=== PATIENT | female | born 1985 | race Caucasian/White ===

== ENCOUNTER 2025-03-31 17:10 | Emergency (ER) | payer OTHER, SELFPAY ==
[2025-03-31 17:12] VITALS: BP 147/104; PULSE 80; RESP 16; TEMP 36.5; O2SAT 99; BMI 34.6
--- NOTE | 2025-03-31 19:12 | ED.GENADULT ---
HPI - General Adult General Chief complaint: Abdominal Pain Stated complaint: Upper abdominal pain Time Seen by Provider: 03/31/25 19:12 History of Present Illness HPI narrative: for the past week pain under sternum after she eats and lasts about 4 hours. today got really bad. states this is what it felt like with gallstone pancreatitis in 2010. gallbladder removed. 40-year-old woman presenting to emergency department with concern of the boring sharp pressure in pain occurring about 30 minutes after eating intermittently over this last week. Nonradiating. In the area of the epigastrium or deep to that. History of gallstone pancreatitis in 2010 requiring hospitalization and cholecystectomy. Has not really had any episodes since although she does recall in 2011 did have what ultimately she thought might be just bad heartburn. She does only struggle with heartburn any case she does feel more symptoms in the upper sternum with that. Cindy has not been touching his discomfort recently. Today did have some salami in some other meats and cheese and then it pain flared. She presented after this to urgent care a felt that further evaluation would be needed in the emergency department setting due to latency to getting lab results. Now pain is on the downward slope she feels. Related Data Home Medications ?Medication ?Instructions ?Recorded ?Confirmed bupropion HCl 150 mg 24 hr tablet, 150 mg PO DAILY 03/31/25 03/31/25 extended release etonogestrel 68 mg subdermal 1 implant subdermal ONCE 03/31/25 03/31/25 implant (Nexplanon) Previous Rx's ?Medication ?Instructions ?Recorded omeprazole 40 mg capsule,delayed 40 mg PO DAILY #15 caps 03/31/25 release Allergies Allergy/AdvReac Type Severity Reaction Status Date / Time No Known Drug Allergies Allergy Verified 03/31/25 21:56 Review of Systems Status of ROS: Reports: 6 or more systems reviewed and unremarkable except as noted in History and below [facility] Social History Smoking Status: Former smoker What tobacco products do you use: cigarettes Smoking quit date/years: <= 15 years ago How often do you have a drink containing alcohol: monthly or less AUDIT-C Alcohol total score: 1 Non-prescribed substance use: denies use Exam Narrative: Exam Narrative: Pleasant. NAD. Breathing easily. Transitioning without significant difficulty. Good energy. Lungs appear clear. Heart in regular rate and rhythm. Abdomen is soft with mild discomfort in the epigastrium. Well-perfused peripherally. No extremity edema. Const: Vital Signs, click to edit/add: Vital Signs - 24 hr 03/31/25 17:12 Temperature 97.7 F Pulse Rate [Pulse Oximeter] 80 Respiratory Rate 16 Blood Pressure [Ri ght Upper Arm] 147/104 H Pulse Oximetry 99 Oxygen Delivery Me thod Room Air Documenting provider has reviewed patient's vital signs: yes Course Vital Signs Vital signs: Initial Vital Signs Temperature 97.7 F 03/31/25 17:12 Temperature Source Temporal Artery Scan 03/31/25 17:12 Pulse Rate 80 03/31/25 17:12 Respiratory Rate 16 03/31/25 17:12 Blood Pressure 147/104 H 03/31/25 17:12 Blood Pressure Mean 118 H 03/31/25 17:12 Blood Pressure Position Sitting 03/31/25 17:12 Pulse Oximetry 99 03/31/25 17:12 Oxygen Delivery Method Room Air 03/31/25 17:12 Vital Signs Temperature 97.7 F 03/31/25 17:12 Pulse Rate 80 03/31/25 17:12 Respiratory Rate 16 03/31/25 17:12 Blood Pressure 147/104 H 03/31/25 17:12 Pulse Oximetry 99 03/31/25 17:12 Oxygen Delivery Method Room Air 03/31/25 17:12 Temperature 97.9 F 03/31/25 22:40 Pulse Rate 79 03/31/25 22:40 Respiratory Rate 18 03/31/25 22:40 Blood Pressure 134/97 H 03/31/25 22:40 Pulse Oximetry 98 03/31/25 22:40 Oxygen Delivery Method Room Air 03/31/25 22:40 Medications Administered Medications: Discontinued Medications Generic Name Dose Route Start Last Admin Trade Name Freq PRN Reason Stop Dose Admin Omeprazole 40 mg 03/31/25 22:43 03/31/25 22:57 Omeprazole [address] PO 03/31/25 22:44 40 mg ONCE ONE Administration Medical Decision Making MDM Narrative Medical decision making narrative: This pain may well be related to pancreatitis. Could be duodenal ulcer. Doubtful vascular disruption or cardiac etiology; would be low risk for this. Is clearly associated with food ingestion. Might be GERD related. Spasm? Check standard labs. Pending these results might benefit from imaging there are with reliable recurrence might be beneficial to get imaging regardless. Might be helpful to identify pancreatic pseudocyst or thickening of for example duodenum that might suggest ulcer or perhaps or would be some other more indolent process. Does not have need of any pain management at this time. Labs are reassuring with normal white count and trace elevation of ALT IV contrasted CT imaging of the abdomen by my independent review I can appreciate postoperative changes. I do not appreciate much else significance. Radiology over-read below Indication: Epigastric pain Technique: CT through the abdomen following 118 mL Isovue 370 IV contrast Comparison: None Findings: Lower chest: No acute abnormality appreciated. Hepatobiliary: No significant parenchymal abnormality is appreciated. Cholecystectomy. Spleen: Tiny nonspecific hypodensity along the posteromedial spleen, likely incidental and benign. Pancreas: No acute abnormality appreciated. Adrenal glands: No acute abnormality appreciated. Kidneys: No acute abnormality appreciated. Subcentimeter hypodensity in the left kidney, too small for definitive characterization by CT. Bowel: No obstruction. No focal perienteric or pericolonic stranding is appreciated. The appendix is visualized and appears unremarkable. Vascular: No acute abnormality appreciated. Lymph nodes: No gross lymphadenopathy. Peritoneum: No free air. No free fluid. Soft tissues: No acute abnormality appreciated. Bones: No acute fracture. No lytic or blastic lesion. Mild lumbosacral spondylosis and L5 pars defects. Impression: No acute abnormality appreciated. Please note that all CT scans at this facility use dose modulation, iterative reconstruction, and/or weight-based dosing when appropriate to reduce radiation dose to as low as reasonably achievable. Dictated by Tahir Wilson MD @ 03/31/2025 10:27:02 PM Did not require other intervention during time in emergency department With association with food perhaps this is more inflammatory, duodenal or gastric ulcer. Might benefit from PPI. There was a history of this. Lipase was normal See patient discharge plan for further discussion Thanks for your patience tonight. Relieved that labs and imaging show nothing. As I said there is 1 more test out there I will call you if that is positive. I would consider restarting omeprazole to take for 2 weeks and then reassess. Sending in that prescription as discussed. In the meantime also would eat a brick kiln burner diet; avoiding fats, cheese, larger quantities of meat, alcohol. Would also message your primary care provider for follow-up. Would consider EGD as a part of this workup. Consider liquid antacid/anti-gas for flares of discomfort. Return for marked increase in persistent pain, associated chest pain, shortness of breath, lightheadedness. Medical Records Medical records reviewed: Yes I reviewed the patient's medical records Lab Data Lab results reviewed: Yes I reviewed the patient's lab results Labs: Lab Results 03/31/25 03/31/25 Range/Units 19:11 22:30 WBC 9.33 (4.50-11.00) K/uL RBC 4.76 (4.00-5.20) m/uL Hgb 14.4 (12.0-16.0) gm/dL Hct 43.1 (33.0-51.0) % MCV 91 (80-100) fL MCH 30 (26-34) pg MCHC 33 (32-36) gm/dL RDW Coeff of Vamshi 11.5 (11.5-15.5) % Plt Count 240 (140-440) K/uL Neut % (Auto) 59.4 (42.0-72.0) % Lymph % (Auto) 26.3 (20-44) % Kern % (Auto) 6.0 (0.0-11.0) % Eos % (Auto) 8.1 H (0.0-7.0) % Baso % (Auto) 0.2 (0.0-3.0) % Neut # (Auto) 5.54 (1.7-7.0) K/uL Lymph # (Auto) 2.45 (0.90-2.90) K/uL Kern # (Auto) 0.60 (0.00-0.90) K/UL Eos # (Auto) 0.80 H (0.00-0.50) K/uL Baso # (Auto) 0.02 (0.00-0.30) K/uL Abs Immat Gran (auto) 0.00 (0.00-0.30) K/uL Imm/Tot Granulo (auto) 0.0 % Sodium 137 (135-149) mmol/L Potassium 3.9 (3.6-5.1) mmol/L Chloride 100 (96-114) mmol/L Carbon Dioxide 27 (20-32) mmol/L Anion Gap 10 (7-15) mEq/L BUN 9 (5-24) mg/dL Creatinine 0.8 (0.5-1.5) mg/dL Estimated Creat Clear 103.11 Estimated GFR 97 ml/min Glucose 98 (60-115) mg/dL Calcium 9.2 (8.4-10.6) mg/dL Total Bilirubin 0.3 (0.1-1.5) mg/dL Direct Bilirubin 0.1 (0.0-0.5) mg/dL AST 33 (12-35) U/L ALT 37 H (4-35) U/L Alkaline Phosphatase 54 (40-150) U/L Troponin I < 0.01 (0.01-0.04) ng/mL C-Reactive Protein < 0.5 L (0.5-1.0) mg/dL Total Protein 7.0 (6.0-8.3) g/dL Albumin 4.3 (3.3-5.0) g/dL Lipase 64 (23-300) U/L Lab Acknowledgement Test Added Discharge Plan Discharge Clinical Impression: Colicky epigastric pain Patient Disposition: Home, Self-Care Condition: Improved Additional Instructions: Thanks for your patience tonight. Relieved that labs and imaging show nothing. As I said there is 1 more test out there I will call you if that is positive. I would consider restarting omeprazole to take for 2 weeks and then reassess. Sending in that prescription as discussed. In the meantime also would eat a brick kiln burner diet; avoiding fats, cheese, larger quantities of meat, alcohol. Would also message your primary care provider for follow-up. Would consider EGD as a part of this workup. Consider liquid antacid/anti-gas for flares of discomfort. Return for marked increase in persistent pain, associated chest pain, shortness of breath, lightheadedness. Prescriptions: New omeprazole 40 mg capsule,delayed release(DR/EC) 40 mg PO DAILY Qty: 15 0RF No Action bupropion HCl 150 mg tablet extended release 24 hr 150 mg PO DAILY Nexplanon 68 mg implant 1 implant subdermal ONCE Rx Instructions: as a single dose Follow Up/Referrals: Provider,Not a Local [Primary Care Provider, Family Practice] Stand Alone [facility]: [facility] Info Instructions
--- OUTSIDE RECORDS SUMMARY | 2025-03-31 19:31 | XMS_ITS | Encounter Summary ---
Author Organization [place] Address [address] [place] [address] Care Team Providers Care Manager Renewable Energy Name Role Phone Yoon Schulz APRN WET CLEANER MACHINE Primary Care Provider Yoon Schulz APRN WET CLEANER MACHINE Unavailable Barrie Bojorquez MD Unavailable [phone] No Ref-Primary, Physician Primary Care Provider Yoon Schulz APRN WET CLEANER MACHINE Unavailable Evgeny Ham MD Unavailable Polina Black NP Unavailable [phone] Ilya Tolliver MD Unavailable [phone] Yoon Schulz APRN WET CLEANER MACHINE Unavailable Polina Black NP Unavailable [phone] [facility] Unavailable [phone] Encounter Details Date Type Department Care Team (Late st Contact Info) Description 02/12/2019 [facility] [place] [address] [facility] [address] [place] [address] [place] [address] [place] [address] [place] [address] Social History Tobacco Use Types Packs/Day Years Used Date Smoking Tobacco: Never Smokeless Tobacco: Never Alcohol Use Standard Drinks/Week Comments Yes 0 (1 standard drink = 0.6 oz pur e alcohol) PHQ-2 Answer Date Recorded PHQ-2 Score 0 06/19/2018 Comments No Sex and Gender Information Value Date Recorded Sex Assigned at Female 05/02/2021 3:16 PM LEGEND MAKER Legal Sex Female 5:00 AM LEGEND MAKER Gender Identity Female 05/02/2021 3:16 PM LEGEND MAKER Sexual Orientation Straight 05/02/2021 3: 16 PM LEGEND MAKER documented as of this encounter Plan of Treatment Not on file documented as of this encounter Visit Diagnoses Not on filedocumented in this encounter Additional Health Concerns Infection Onset Date Last Indicated Resolved Time Rule Out COVID-19 05/03/2021 05/03/2021 05/03/2021 4:45 PM LEGEND MAKER COVID-19 05/03/2021 05/03/2021 05/24/2021 11:4 1 PM LEGEND MAKER documented as of this encounter Care Teams Manager Renewable Energy Relationship Specialty Start Date End Date Yoon Schulz APRN WET CLEANER MACHINE PCP - General Nurse Practitioner 03/13/17 01/15/21 No Ref-Primary, Physician PCP - General 01/16/21 Yoon Schulz APRN WET CLEANER MACHINE [address] [place] [address] Assigned PCP 03/18/17 09/04/20 [place] [address] [facility] [address] [place] [address] Assigned Musculoskeletal Provider 04/02/20 08/14/20 Yoon Schulz APRN WET CLEANER MACHINE [address] [place] [address] Assigned PCP 05/29/21 03/17/22 Evgeny Ham MD [address] [place] [address] Assigned Sleep Provider 07/31/21 Polina Black NP [address] [place] [address] Assigned PCP 03/18/22 08/04/22 [place] [address] [place] [address] Assigned OBGYN Provider 05/20/22 Yoon Schulz APRN WET CLEANER MACHINE Assigned PCP 08/05/22 11/17/22 Polina Black NP [address] [place] [address] Assigned PCP 11/18/22 03/02/24 [facility] [address] [place] [address] Assigned PCP 03/03/24 07/02/24 documented as of this encounter
--- OUTSIDE RECORDS SUMMARY | 2025-03-31 19:31 | XMS_ITS | Encounter Summary ---
Author Organization [place] Address [address] [place] [address] Care Team Providers Care Clean Up Worker Name Role Phone Jazz, Yoon Gregorio MAJOR DONOR COORDINATOR PHARMACY CARE COORDINATOR Primary Care Provider Jazz, Yoon Gregorio MAJOR DONOR COORDINATOR PHARMACY CARE COORDINATOR Unavailable Jazz, Yoon Gregorio MAJOR DONOR COORDINATOR PHARMACY CARE COORDINATOR Unavailable Barrie Bojorquez MD Unavailable [phone] No Ref-Primary, Physician Primary Care Provider Jazz, Yoon Gregorio MAJOR DONOR COORDINATOR PHARMACY CARE COORDINATOR Unavailable Evgeny Ham MD Unavailable Polina Black NP Unavailable [phone] Ilya Tolliver MD Unavailable [phone] JazzYoon rubalcava APRN PHARMACY CARE COORDINATOR Unavailable Polina Black NP Unavailable [phone] [facility] Unavailable [phone] Encounter Details Date Type Department Care Team (Late st Contact Info) Description 08/06/2017 [facility] [place] [address] [place] [place] [address] [place] [place] [address] Resendiz, Oscar Social History Tobacco Use Types Packs/Day Years Used Date Smoking Tobacco: Never Alcohol Use Standard Drinks/Week Comments Yes 0 (1 standard drink = 0.6 oz pur e alcohol) Comments No Sex and Gender Information Value Date Recorded Sex Assigned at Female 05/02/2021 3:16 PM TRAFFIC CONTROL OPERATOR Legal Sex Female 5:00 AM TRAFFIC CONTROL OPERATOR Gender Identity Female 05/02/2021 3:16 PM TRAFFIC CONTROL OPERATOR Sexual Orientation Straight 05/02/2021 3: 16 PM TRAFFIC CONTROL OPERATOR documented as of this encounter Plan of Treatment Not on file documented as of this encounter Visit Diagnoses Not on filedocumented in this encounter Additional Health Concerns Infection Onset Date Last Indicated Resolved Time Rule Out COVID-19 05/03/2021 05/03/2021 05/03/2021 4:45 PM TRAFFIC CONTROL OPERATOR COVID-19 05/03/2021 05/03/2021 05/24/2021 11:4 1 PM TRAFFIC CONTROL OPERATOR documented as of this encounter Care Teams Clean Up Worker Relationship Specialty Start Date End Date Yoon Schulz APRN CNP PCP - General Nurse Practitioner 03/13/17 01/15/21 Yoon Schulz APRN PHARMACY CARE COORDINATOR [address] [place] [address] PCP - Assigned PCP 03/18/17 08/13/18 No Ref-Primary, Physician PCP - General 01/16/21 Yoon Schulz APRN PHARMACY CARE COORDINATOR [address] [place] [address] Assigned PCP 03/18/17 09/04/20 [place] [address] [place] [place] [address] Assigned Musculoskeletal Provider 04/02/20 08/14/20 Yoon Schulz APRN PHARMACY CARE COORDINATOR [address] [place] [address] Assigned PCP 05/29/21 03/17/22 Evgeny Ham MD [address] [place] [address] Assigned Sleep Provider 07/31/21 Polina Black NP [address] [place] [address] Assigned PCP 03/18/22 08/04/22 [place] [address] [place] [address] Assigned OBGYN Provider 05/20/22 Yoon Schulz APRN PHARMACY CARE COORDINATOR Assigned PCP 08/05/22 11/17/22 Polina Black NP [address] [place] [address] Assigned PCP 11/18/22 03/02/24 [facility] [address] [place] [address] Assigned PCP 03/03/24 07/02/24 documented as of this encounter
--- OUTSIDE RECORDS SUMMARY | 2025-03-31 19:31 | XMS_ITS | Encounter Summary ---
Author Organization [facility] Address [address] [place] [address] Care Team Providers Care Pl Sql Programmer Name Role Phone No Ref-Primary, Physician Primary Care Provider Yoon Schulz APRN SENIOR ACCOUNTING CLERK Unavailable Evgeny Ham MD Unavailable Polina Black NP Unavailable [phone] Ilya Tolliver MD Unavailable [phone] Yoon Schulz APRN SENIOR ACCOUNTING CLERK Unavailable Polina Black NP Unavailable [phone] [facility] Unavailable [phone] Encounter Details Date Type Department Care Team (Late st Contact Info) Description 07/14/2021 [facility] Advice [facility] [place] [address] [address] Moon Gilliland, MOTOR VEHICLE FIELD REPRESENTATIVE Social History Tobacco Use Types Packs/Day Years Used Date Smoking Tobacco: Former Smokeless Tobacco: Never Comments:quit in 2010 Alcohol Use Standard Drinks/Week Comments Yes 0 (1 standard drink = 0.6 oz pur e alcohol) occasional weekends PHQ-2 Answer Date Recorded PHQ-2 Score 0 06/19/2018 Comments No Sex and Gender Information Value Date Recorded Sex Assigned at Female 05/02/2021 3:16 PM SUPERVISOR PASTRY Legal Sex Female 5:00 AM SUPERVISOR PASTRY Gender Identity Female 05/02/2021 3:16 PM SUPERVISOR PASTRY Sexual Orientation Straight 05/02/2021 3: 16 PM SUPERVISOR PASTRY documented as of this encounter Plan of Treatment Not on file documented as of this encounter Visit Diagnoses Not on filedocumented in this encounter Care Teams Pl Sql Programmer Relationship Specialty Start Date End Date No Ref-Primary, Physician PCP - General 01/16/21 Yoon Schulz APRN SENIOR ACCOUNTING CLERK [address] [place] [address] Assigned PCP 05/29/21 03/17/22 Evgeny Ham MD [address] [place] [address] Assigned Sleep Provider 07/31/21 Polina Black NP [address] [place] [address] Assigned PCP 03/18/22 08/04/22 [place] [address] [place] [address] Assigned OBGYN Provider 05/20/22 Yoon Schulz APRN SENIOR ACCOUNTING CLERK [address] [place] [address] Assigned PCP 08/05/22 11/17/22 Polina Black NP [address] [place] [address] Assigned PCP 11/18/22 03/02/24 [facility] [address] [place] [address] Assigned PCP 03/03/24 07/02/24 documented as of this encounter
--- OUTSIDE RECORDS SUMMARY | 2025-03-31 19:31 | XMS_ITS | Encounter Summary ---
Author Organization [place] Address [address] [place] [address] Care Team Providers Care Shade Matcher Name Role Phone Jazz, Yoon Gregorio CLINICAL LAB SCIENTIST ECONOMIC DEVELOPMENT SPECIALIST Primary Care Provider Jazz, Yoon Gregorio CLINICAL LAB SCIENTIST ECONOMIC DEVELOPMENT SPECIALIST Unavailable Jazz, Yoon Gregorio CLINICAL LAB SCIENTIST ECONOMIC DEVELOPMENT SPECIALIST Unavailable Barrie Bojorquez MD Unavailable [phone] No Ref-Primary, Physician Primary Care Provider Jazz, Yoon Gregorio CLINICAL LAB SCIENTIST ECONOMIC DEVELOPMENT SPECIALIST Unavailable Evgeny Ham MD Unavailable Polina Black NP Unavailable [phone] Ilya Tolliver MD Unavailable [phone] JazzYoon rubalcava APRN ECONOMIC DEVELOPMENT SPECIALIST Unavailable Polina Black NP Unavailable [phone] [facility] Unavailable [phone] Encounter Details Date Type Department Care Team (Late st Contact Info) Description 01/14/2018 [facility] [address] [address] Lore Ruiz RN Social History Tobacco Use Types Packs/Day Years Used Date Smoking Tobacco: Never Smokeless Tobacco: Never Alcohol Use Standard Drinks/Week Comments Yes 0 (1 standard drink = 0.6 oz pur e alcohol) Comments No Sex and Gender Information Value Date Recorded Sex Assigned at Female 05/02/2021 3:16 PM SEARCH ANALYST Legal Sex Female 5:00 AM SEARCH ANALYST Gender Identity Female 05/02/2021 3:16 PM SEARCH ANALYST Sexual Orientation Straight 05/02/2021 3: 16 PM SEARCH ANALYST documented as of this encounter Plan of Treatment Not on file documented as of this encounter Visit Diagnoses Not on filedocumented in this encounter Additional Health Concerns Infection Onset Date Last Indicated Resolved Time Rule Out COVID-19 05/03/2021 05/03/2021 05/03/2021 4:45 PM SEARCH ANALYST COVID-19 05/03/2021 05/03/2021 05/24/2021 11:4 1 PM SEARCH ANALYST documented as of this encounter Care Teams Shade Matcher Relationship Specialty Start Date End Date Yoon Schulz APRN ECONOMIC DEVELOPMENT SPECIALIST PCP - General Nurse Practitioner 03/13/17 01/15/21 Yoon Schulz APRN ECONOMIC DEVELOPMENT SPECIALIST [address] [place] [address] PCP - Assigned PCP 03/18/17 08/13/18 No Ref-Primary, Physician PCP - General 01/16/21 Yoon Schulz APRN ECONOMIC DEVELOPMENT SPECIALIST [address] [place] [address] Assigned PCP 03/18/17 09/04/20 [place] [address] [place] [place] [address] Assigned Musculoskeletal Provider 04/02/20 08/14/20 Yoon Schulz APRN ECONOMIC DEVELOPMENT SPECIALIST [address] [place] [address] Assigned PCP 05/29/21 03/17/22 Evgeny Ham MD [address] [facility] [address] [place] [address] Assigned Sleep Provider 07/31/21 Polina Black, TOOL LATHE OPERATOR [address] [place] [address] Assigned PCP 03/18/22 08/04/22 [place] [address] [place] [address] Assigned OBGYN Provider 05/20/22 Yoon Schulz, CLINICAL LAB SCIENTIST ECONOMIC DEVELOPMENT SPECIALIST Assigned PCP 08/05/22 11/17/22 Polina Black, LILIANA [address] [place] [address] Assigned PCP 11/18/22 03/02/24 [facility] [address] [place] [address] Assigned PCP 03/03/24 07/02/24 documented as of this encounter
--- OUTSIDE RECORDS SUMMARY | 2025-03-31 19:31 | XMS_ITS | Encounter Summary ---
Author Organization [facility] Address [address] [place] [address] Care Team Providers Care Ring Sewer Name Role Phone Jazz, Yoon Gregorio WET END HELPER HEAD OF SALES AND MARKETING Primary Care Provider Jazz, Yoon Gregorio WET END HELPER HEAD OF SALES AND MARKETING Unavailable Jazz, Yoon Gregorio WET END HELPER HEAD OF SALES AND MARKETING Unavailable Barrie Bojorquez MD Unavailable [phone] No Ref-Primary, Physician Primary Care Provider Jazz, Yoon Gregorio WET END HELPER HEAD OF SALES AND MARKETING Unavailable Evgeny Ham MD Unavailable Polina Black NP Unavailable [phone] Ilya Tolliver MD Unavailable [phone] JazzYoon rubalcava APRN HEAD OF SALES AND MARKETING Unavailable Polina Black NP Unavailable [phone] [facility] Unavailable [phone] Reason for Visit * Reason Onset Date Comments Patient/info Update 09/10/2017 Encounter Details Date Type Department Care Team (Late st Contact Info) Description 09/10/2017 [facility] [address] [place] [address] Yoon Schulz APRN HEAD OF SALES AND MARKETING [address] [place] [address] Patient/info Update Social History Tobacco Use Types Packs/Day Years Used Date Smoking Tobacco: Never Alcohol Use Standard Drinks/Week Comments Yes 0 (1 standard drink = 0.6 oz pur e alcohol) Comments No Sex and Gender Information Value Date Recorded Sex Assigned at Female 05/02/2021 3:16 PM HEADLIGHT ASSEMBLER Legal Sex Female 5:00 AM HEADLIGHT ASSEMBLER Gender Identity Female 05/02/2021 3:16 PM HEADLIGHT ASSEMBLER Sexual Orientation Straight 05/02/2021 3: 16 PM HEADLIGHT ASSEMBLER documented as of this encounter Miscellaneous Notes * Telephone Encounter - Yoon Schulz APRN CNP - 09/10/2017 3:32 PM CDT noted * Telephone Encounter - Lisa Schmid RN - 09/10/2017 3:29 PM CDT Please see mychart. She does have appt with Rheumatology 10-25-17. OV notes 09-04-17: Pain in joint, multiple sites Unknown etiology- workup thus far has been unremarkable - RHEUMATOLOGY REFERRAL - Anaplasma phagocytoph antibody IgG IgM - Babesia antibody IgG IgM - Lyme Disease Demi with reflex to WB Serum - TSH with free T4 reflex - CRP inflammation - Erythrocyte sedimentation rate auto ?? 2. History of wrist fracture ?? Routing to provider. Lisa Allen RN documented in this encounter Plan of Treatment Not on file documented as of this encounter Visit Diagnoses Not on filedocumented in this encounter Additional Health Concerns Infection Onset Date Last Indicated Resolved Time Rule Out COVID-19 05/03/2021 05/03/2021 05/03/2021 4:45 PM HEADLIGHT ASSEMBLER COVID-19 05/03/2021 05/03/2021 05/24/2021 11:4 1 PM HEADLIGHT ASSEMBLER documented as of this encounter Care Teams Ring Sewer Relationship Specialty Start Date End Date Yoon Schulz APRN HEAD OF SALES AND MARKETING PCP - General Nurse Practitioner 03/13/17 01/15/21 Yoon Schulz APRN HEAD OF SALES AND MARKETING [address] [facility] [place] [address] PCP - Assigned PCP 03/18/17 08/13/18 No Ref-Primary, Physician PCP - General 01/16/21 Yoon Schulz APRN HEAD OF SALES AND MARKETING [address] [facility] [place] [address] Assigned PCP 03/18/17 09/04/20 [place] [address] [place] [address] Assigned Musculoskeletal Provider 04/02/20 08/14/20 Yoon Schulz APRN HEAD OF SALES AND MARKETING [address] [facility] [place] [address] Assigned PCP 05/29/21 03/17/22 Evgeny aHm MD [address] [place] [address] Assigned Sleep Provider 07/31/21 Polina Black NP [address] [place] [address] Assigned PCP 03/18/22 08/04/22 [place] [address] [place] [address] Assigned OBGYN Provider 05/20/22 Yoon Schulz APRN HEAD OF SALES AND MARKETING Assigned PCP 08/05/22 11/17/22 Polina Black NP [address] [place] [address] Assigned PCP 11/18/22 03/02/24 [facility] [address] [place] [address] Assigned PCP 03/03/24 07/02/24 documented as of this encounter
--- OUTSIDE RECORDS SUMMARY | 2025-03-31 19:31 | XMS_ITS | Clinical Summary ---
Author Organization [facility] Address [address] [place] [address] Care Team Providers Care Chief Marketing Officer Name Role Phone Pcp, No Primary Care Provider Unavailabl e Allergies No known active allergies Medications desogestrel-et hinyl estradiol, 0.15-30 mg-mcg, (RECMAKSIMEN, 28,) tablet Take 1 tablet by mouth once daily. 3 Package 3 0 Active oxyCODONE-acet aminophen, 5-325 mg, (PERCOCET 5-325) 5-325 mg per tablet Take 1-2 tablets by mouth every 4 hours if needed for Pain (Moderate pain.). Max acetaminophen dose: 4000mg in 24 hrs. 30 tablet 0 1 Active oxyCODONE-acet aminophen, 5-325 mg, (PERCOCET) per tablet Take 1-2 tablets by mouth every 6 hours if needed for Pain. Max acetaminophen dose: 4000mg in 24 hrs. 10 tablet 0 2 Active buPROPion (WELLBUTRIN XL) 150 mg Extended-Relea se tablet 5 Active etonogestrel subdermal implant (NEXPLANON) 68 mg implant Inject subdermal one time. Active Active Problems Problem Noted Date Diagnosed Date Gallstone pancreatitis 12/26/2010 Overview (12/26/2010): 12-26-10 Lap [place] and grams per Dr Adorno Encounters Date Type Department Care Team Description 03/25/2025 1:40 PM CDT Office Visit [facility] [address] [id number] Ana Guzman MD Derm Problem 03/24/2025 Travel from Last 3 Months Family History Medical History Relation Name Comments Other Mother lymes disease Other Sister appendix remove d Relation Name Status Comments Mother Sister Social History Tobacco Use Types Packs/Day Years Used Date Smoking Tobacco: Former Cigarettes 0 07/12/2001 - 07/12/2008 Comments:Quit smoking with 7 yr hx noted 10/14/08 Alcohol Use Standard Drinks/Week Comments Yes 0 (1 standard drink = 0.6 oz pur e alcohol) occas. 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 file Not on file Not on file Obstetrics History Para Term AB IAB SAB Ectopic Multiple Livin g Live Births 0 0 0 0 0 0 0 0 0 0 Last Filed Vital Signs Vital Sign Reading Time Taken Comments Blood Pressure 125/73 09/24/2011 6:11 AM CDT Pulse 76 09/24/2011 6:11 AM CDT Temperature 36.1 C (97 F) 09/24/2011 12:26 AM CDT Respiratory Rate 16 09/24/2011 6:11 AM CDT Oxygen Saturation 98% 09/24/2011 6:11 AM CDT Inhaled Oxygen Concentration - - Weight 83.9 kg (185 lb) 09/24/2011 12:26 AM CDT Height 177.8 cm (5' 10) 12/23/2010 9:35 PM CDT Body Mass Index 26.54 12/23/2010 9:35 PM CDT Plan of Treatment Health Maintenance Due Date Last Done Comments Depression screening for age 12+ 1999 HIV for age 15-65 2002 BMI (ht and wt on same day) for age 18+ 2005 Hepatitis C screening for ag e 18-79 2005 Hepatitis B series for 19+ ( 1 of 3 - 19+ 3-dose series) 2006 Pap test for age 21-65 10/15/2011 10/14/2008 Tetanus booster 06/11/2012 06/11/2002 HPV series for age 9-45 (1 - 3-dose SCDM series) 2014 COVID-19 vaccine series (2023- season) 2025 Influenza Vaccine (#1) 2025 RSV vaccine for adults or (1 - 1-dose 75+ series) 2062 Pneumococcal series for age 6-49 Aged Out No longer eligible based on patient's age to complete this topic Procedures Procedure Name Priority Date/Time Associated Diagnosis Comments MEDICAL INSTRUMENT TECHNICIAN THIN PREP PAP SCREEN IMAGED Routine 10/14/2008 5:38 PM CDT Cervical Smear, as Part of Routine Gynecological Examination from Last 3 Months or Most Recently Relevant to Health Maintenance Results * MEDICAL INSTRUMENT TECHNICIAN THIN PREP PAP SCREEN IMAGED (10/14/2008 5:38 PM CDT) CYTOLOGY CYTOPATHOLOGY REPORT [facility] Status: Final Report [id number] CLINICAL INFORMATION Date of Last LMP : 09/16/08 Last Pap Date : never Last Pap Result : First Pap/Unknown ABN [place]/Bx Past 5 YRS: None Hormone Usage : None Menstrual Status : Regular Periods [place]/Bx done today : No Additional Data : None given HPV Request : HPV if ASCUS SPECIMEN SOURCE : Cervical/vaginal ThinPrep Vial, screening SPECIMEN ADEQUACY : Satisfactory for evaluation Endocervical component present. INTERPRETATION/RES ULT: Negative for intraepithelial lesion or malignancy (NIL) Organisms Shift in maricarmen suggestive of bacterial vaginosis Cytology 1st Screener : jeison Signed by: tll This specimen was screened by the FDA approved ThinPrep Imaging System and manually reviewed. NOTE: The Pap test is a screening technique, not a diagnostic procedure. It is used primarily to screen for squamous cancers and precursor lesions. Published studies have shown that it is subject to both false negative and false positive results. The pap test should not be used as the sole means to diagnose or exclude pre-malignant and malignant lesions. COLLECTED: 10/14/08 ACCESSIONED: 10/14/08 SIGNED: 10/20/08 [facility] P[facility] [place] CODE NIL [facility] Cervical/Vaginal (Cervical/Vagina l) 10/14/2008 5:38 PM CDT 10/14/2008 5:36 PM CDT Peri Garza DO PATHOLOGY/CYTOLOGY Final Resul t [facility] INTERNAL ZIP [address] [address] from Last 3 Months or Most Recently Relevant to Health Maintenance Insurance MEDICA CHOICE Advance Directives * Full Code (Latest Code Status on File) Date Activated Date Inactivated Comments 12/25/2010 9:15 PM 12/27/2010 3:30 PM * Full Code Date Activated Date Inactivated Comments 12/23/2010 9:55 PM 12/25/2010 9:15 PM Care Teams Chief Marketing Officer Relationship Specialty Start Date End Date Pcp, No . PCP - General 12/23/10
--- OUTSIDE RECORDS SUMMARY | 2025-03-31 19:31 | XMS_ITS | Encounter Summary ---
Author Organization [facility] Address [address] [place] [address] Care Team Providers Care Fast Food Sales Assistant Name Role Phone JazzYoon APRN ADVERTISING REPRESENTATIVE Primary Care Provider Jazz, Yoon Gregorio APRN ADVERTISING REPRESENTATIVE Unavailable JazzYoon APRN ADVERTISING REPRESENTATIVE Unavailable Barrie Bojorquez MD Unavailable [phone] No Ref-Primary, Physician Primary Care Provider JazzYoon APRN ADVERTISING REPRESENTATIVE Unavailable Evgeny Ham MD Unavailable Polina Black NP Unavailable [phone] Ilya Tolliver MD Unavailable [phone] JazzYoon rubalcava APRN ADVERTISING REPRESENTATIVE Unavailable Polina Black NP Unavailable [phone] [facility] Unavailable [phone] Encounter Details Date Type Department Care Team (Late st Contact Info) Description 10/09/2017 [facility] [place] [facility] [address] [place] [id number] Yoon Schulz APRN ADVERTISING REPRESENTATIVE [address] [place] [address] Recurrent cold sores Social History Tobacco Use Types Packs/Day Years Used Date Smoking Tobacco: Never Alcohol Use Standard Drinks/Week Comments Yes 0 (1 standard drink = 0.6 oz pur e alcohol) Comments No Sex and Gender Information Value Date Recorded Sex Assigned at Female 05/02/2021 3:16 PM LEGAL INTERNSHIP Legal Sex Female 5:00 AM LEGAL INTERNSHIP Gender Identity Female 05/02/2021 3:16 PM LEGAL INTERNSHIP Sexual Orientation Straight 05/02/2021 3: 16 PM LEGAL INTERNSHIP documented as of this encounter Miscellaneous Notes * Telephone Encounter - Radha Guidry RN - 10/09/2017 6:37 PM CDT Routed to provider. Pt last seen 09/04/17. Last filled Valacyclovir 04/20/15. Please see Zachary Prell message from pt below. Radha Guidry RN documented in this encounter Plan of Treatment Not on file documented as of this encounter Visit Diagnoses Diagnosis Recurrent cold sores Herpes simplex without mention of complication documented in this encounter Additional Health Concerns Infection Onset Date Last Indicated Resolved Time Rule Out COVID-19 05/03/2021 05/03/2021 05/03/2021 4:45 PM LEGAL INTERNSHIP COVID-19 05/03/2021 05/03/2021 05/24/2021 11:4 1 PM LEGAL INTERNSHIP documented as of this encounter Care Teams Fast Food Sales Assistant Relationship Specialty Start Date End Date Yoon Schulz APRN ADVERTISING REPRESENTATIVE PCP - General Nurse Practitioner 03/13/17 01/15/21 Yoon Schulz APRN ADVERTISING REPRESENTATIVE [address] [place] [address] PCP - Assigned PCP 03/18/17 08/13/18 No Ref-Primary, Physician PCP - General 01/16/21 Yoon Schulz APRN ADVERTISING REPRESENTATIVE [address] [place] [address] Assigned PCP 03/18/17 09/04/20 [place] [address] [place] [address] Assigned Musculoskeletal Provider 04/02/20 08/14/20 Yoon Schulz APRN ADVERTISING REPRESENTATIVE [address] [place] [address] Assigned PCP 05/29/21 03/17/22 Evgeny aHm MD [address] [place] [id number] Assigned Sleep Provider 07/31/21 Polina Black, LILIANA [address] [place] [address] Assigned PCP 03/18/22 08/04/22 [place] [address] [place] [address] Assigned OBGYN Provider 05/20/22 Yoon Schulz APRN ADVERTISING REPRESENTATIVE Assigned PCP 08/05/22 11/17/22 Polina Black NP [address] [place] [address] Assigned PCP 11/18/22 03/02/24 [facility] [address] [place] [address] Assigned PCP 03/03/24 07/02/24 documented as of this encounter
--- OUTSIDE RECORDS SUMMARY | 2025-03-31 19:32 | XMS_ITS | Clinical Summary ---
Author Organization [facility] Address [address] [place] [address] Care Team Providers Care Concrete Spreader Name Role Phone No Ref-Primary, Physician Primary Care Provider Allergies No known active allergies Medications etonogestrel (NEXPLANON) 68 MG IMPLIndications:En counter for gynecological examination without abnormal finding 1 each by Subdermal route once Active etonogestrel (NEXPLANON) 68 MG IMPL 1 each (68 mg) by Subdermal route once Active etonogestrel (NEXPLANON) 68 MG IMPLIndications:En counter for removal and reinsertion of Nexplanon 1 each (68 mg) by Subdermal route once Active Active Problems Problem Noted Date Diagnosed Date Nexplanon insertion 06/06/2022 Overview (06/06/2022): Clinic Administered Medication Documentation Administrations This Visit etonogestrel (NEXPLANON) subdermal implant 68 mg Admin Date 06/06/2022 Action Given Dose 68 mg Route Subdermal Site Left Arm Administered By Shayy Lujan CMA Ordering Provider: Ilya Tolliver MD Patient Supplied?: No Intrauterine/Implant Insertion Documentation Device was placed by provider (please see MAR for given by information). Please see MAR and medication order for additional information. Type: Nexplanon Left arm Remove/Replace by: 06/06/25 Expiration Date: 04/03/24 Restless legs syndrome (RLS) 07/20/2021 Sleep-wake schedule disorder, delayed phase type 07/20/2021 Infection due to 2019 novel coronavirus 05/05/20 Acute respiratory failure with hypoxia Cold sore 04/29/2015 CARDIOVASCULAR SCREENING; LDL GOAL LESS THAN 160 04/10/2010 Joint pain Vitamin D deficiency Immunizations Immunization Administration Dates Next Due HPV9 (Gardasil) 11/09/2022,07/24/2022,05/11/2022 Hepatitis B Immunity: Titer 03/01/2005 Meningococcal (Menomune ) 03/01/2005 Rabies Vaccine 09/11/2005, 6,08/21/2005,05/15/2005,02/10 TDAP Vaccine (Adacel) 04/20/2015 Family History Medical History Relation Comments Breast Cancer Maternal Aunt Arthritis Maternal Grandfather Colon Cancer Maternal Grandfather Prostate Cancer Maternal Grandfather Arthritis Maternal Grandmother Breast Cancer Paternal Aunt Seizure Disorder Paternal Aunt Arthritis Paternal Grandfather Cancer Paternal Grandfather unknown wha t type of cancer Hypertension Paternal Grandfather Arthritis Paternal Grandmother Relation Status Comments Father Alive Maternal Aunt Alive Maternal Grandfather Maternal Grandmother Alive Mother Alive Paternal Aunt Paternal Grandfather Paternal Grandmother Sister 1 Alive Sister 2 Alive Social History Tobacco Use Types Packs/Day Years Used Date Smoking Tobacco: Former Smokeless Tobacco: Never Tobacco Cessation:Counseling Given: Not Answered Comments:quit in 2010 Alcohol Use Standard Drinks/Week Comments Yes 0 (1 standard drink = 0.6 oz pur e alcohol) occasional weekends PHQ-2 Answer Date Recorded PHQ-2 Score 0 07/20/2021 Adolescent Education Answer Date Record ed Getting School Help Needed Not on file 03/12 Comments No Sex and Gender Information Value Date Recorded Sex Assigned at Female 05/02/2021 3:16 PM MORTAR MIXER OPERATOR Legal Sex Female 5:00 AM MORTAR MIXER OPERATOR Gender Identity Female 05/02/2021 3:16 PM MORTAR MIXER OPERATOR Sexual Orientation Straight 05/02/2021 3: 16 PM MORTAR MIXER OPERATOR Last Filed Vital Signs Vital Sign Reading Time Taken Comments Blood Pressure 133/87 06/06/2022 2:31 PM MORTAR MIXER OPERATOR Pulse 97 06/06/2022 2:31 PM MORTAR MIXER OPERATOR Temperature 35.6 C (96.1 F) 06/06/2022 2:31 PM MORTAR MIXER OPERATOR Respiratory Rate 20 06/06/2022 2:31 PM MORTAR MIXER OPERATOR Oxygen Saturation 98% 05/17/2021 9:50 AM MORTAR MIXER OPERATOR Inhaled Oxygen Concentration - - Weight 122.4 kg (269 lb 14.4 oz) 06/06/2022 2:31 PM MORTAR MIXER OPERATOR Height 177.8 cm (5' 10) 06/06/2022 2:31 PM MORTAR MIXER OPERATOR Body Mass Index 38.73 06/06/2022 2:31 PM MORTAR MIXER OPERATOR Plan of Treatment Health Maintenance Due Date Last Done Comments ANNUAL REVIEW OF HM ORDERS 1987 YEARLY PREVENTIVE VISIT 1990 HIV SCREENING 2002 HEPATITIS B VACCINE (2 of 3 - 3-dose series) 03/29/2005 03/01/2005 DIABETES SCREENING 05/07/2024 05/07/2021, 1 07/06/2020, 05/05/2021, Additional history exists PHQ-2 (once per calendar year) 2024 07/20/2021, 10/25/2017, 04/20/2015 COVID-19 VACCINE ( - season) 2025 INFLUENZA VACCINE (#1) 2025 DTAP/TDAP/TD VACCINE (2 - Td or Tdap) 04/20/2025 04/20/2015 ADVANCE CARE PLANNING 01/27/2026 01/27/2021 HPV TEST 05/11/2027 05/11/2022 PAP 05/11/2027 05/11/2022 ZOSTER VACCINE (1 of 2) 2037 MENINGITIS VACCINE Aged Out 03/01/2005 No longer eligible based on patient's age to complete this topic HEPATITIS C SCREENING Completed 10/25/2017 HPV VACCINE Completed 11/09/2022, 07/12, 05/11/2022 PNEUMOCOCCAL VACCINE: PEDIATRICS (0 to 5 YEARS) AND AT-RISK PATIENTS (6 to 49 YEARS) Aged Out No longer eligible based on patient's age to complete this topic Procedures Procedure Name Priority Date/Time Associated Diagnosis Comments GYNECOLOGIC CYTOLOGY Routine 05/11/2022 10:03 AM MORTAR MIXER OPERATOR Encounter for gynecological examination without abnormal finding HPV HIGH RISK TYPES DNA CERVICAL Routine 05/11/2022 10:03 AM MORTAR MIXER OPERATOR Encounter for gynecological examination without abnormal finding BASIC METABOLIC PANEL Routine 05/07/2021 4:49 AM MORTAR MIXER OPERATOR HEPATITIS C ANTIBODY Routine 10/25/2017 2:04 PM CDT Multiple joint pain from Last 3 Months or Most Recently Relevant to Health Maintenance Results * Pap screen with HPV - recommended age 30 - 65 years (05/11/2022 10:03 AM MORTAR MIXER OPERATOR) Interpretation Negative for Intraepithelial Lesion or Malignancy (NILM) 05/15/2022 11:19 AM MORTAR MIXER OPERATOR [facility] at 1119 MORTAR MIXER OPERATOR Comment Papanicolaou Test Limitations: Cervical cytology is a screening test with limited sensitivity, and regular screening is critical for cancer prevention. Pap tests are primarily effective for the diagnosis/prevent ion of squamous cell carcinoma, not adenocarcinoma or other cancers. 05/15/2022 11:19 AM MORTAR MIXER OPERATOR [facility] Specimen Adequacy Satisfactory for evaluation, endocervical/chun sformation zone component absent 05/15/2022 11:19 AM MORTAR MIXER OPERATOR [facility] Clinical Information none 05/15/2022 11:19 AM MORTAR MIXER OPERATOR [facility] Reflex Testing Yes regardless of result 05/15/2022 11:19 AM MORTAR MIXER OPERATOR [facility] Previous Abnormal? No 05/15/2022 11:19 AM MORTAR MIXER OPERATOR [facility] Performing Labs The technical component of this testing was completed at [facility] 05/15/2022 11:19 AM MORTAR MIXER OPERATOR [facility] Brushing CERVIX UTERI STRUCTURE / Unknown 05/11/2022 10:03 AM MORTAR MIXER OPERATOR 05/11/2022 10:29 AM MORTAR MIXER OPERATOR us Ilya COSTELLO - YOJANA STANFORD Final Res ult [facility] [address], [address] [address], [facility] [phone] * HPV High Risk Types DNA Cervical (05/11/2022 10:03 AM MORTAR MIXER OPERATOR) Other HR HPV Negative Negative 05/17/2022 12:50 PM MORTAR MIXER OPERATOR [facility] HPV16 DNA Negative Negative 05/17/2022 12:50 PM MORTAR MIXER OPERATOR [facility] HPV18 DNA Negative Negative 05/17/2022 12:50 PM MORTAR MIXER OPERATOR [facility] FINAL DIAGNOSIS This patient's sample is negative for HPV DNA. This test was developed and its performance characteristics determined by the [facility]. It has not been cleared or approved by the FDA. The laboratory is regulated under CLIA as qualified to perform high-complexity testing. This test is used for clinical purposes. It should not be regarded as investigational or for research. METHODOLOGY: The [employer]by Lu[employer] 4800 system uses automated extraction, simultaneous amplification of HPV (L1 region) and beta-globin, followed by real time detection of fluorescent labeled HPV and beta globin using specific oligonucleotide probes. The test specifically identifies types HPV 16 DNA and HPV 18 DNA while concurrently detecting the rest of the high risk types (31, 33, 35, 39, 45, 51, 52, 56, 58, 59, 66 or 68). COMMENTS: This test is not intended for use as a screening device for woman under age 30 with normal cervical cytology. Results should be correlated with cytologic and histologic findings. Close clinical followup is recommended. 05/17/2022 12:50 PM MORTAR MIXER OPERATOR [facility] Brushing CERVIX UTERI STRUCTURE / Unknown Non-blood Collection / Unknown 05/11/2022 10:03 AM MORTAR MIXER OPERATOR 05/16/2022 7:51 AM MORTAR MIXER OPERATOR Ilya Tolliver MD LAB - BLOOD ORDERABLES Fi nal Result [facility] [address] [facility] [address] [facility], [address] [place] [address], [facility] [phone] * (ABNORMAL) Basic metabolic panel (05/07/2021 4:49 AM MORTAR MIXER OPERATOR) Sodium 143 133 - 144 mmol/L 05/07/2021 5:38 AM MORTAR MIXER OPERATOR [facility] Potassium (POCT) 3.9 3.4 - 5.3 mmol/L 05/07/2021 5:38 AM MORTAR MIXER OPERATOR [facility] Chloride (POCT) 110(H) 94 - 109 mmol/L 05/07/2021 5:38 AM [facility] Carbon Dioxide (CO2) (POCT) 29 20 - 32 mmol/L 05/07/2021 5:38 AM [facility] Anion Gap (POCT) 4 3 - 14 mmol/L 05/07/2021 5:38 AM [facility] Urea Nitrogen (POCT) 10 7 - 30 mg/dL 05/07/2021 5:38 AM [facility] Creatinine 0.63 0.52 - 1.04 mg/dL 05/07/2021 5:38 AM [facility] Calcium 8.3(L) 8.5 - 10.1 mg/dL 05/07/2021 5:38 AM [facility] Glucose (POCT) 117(H) 70 - 99 mg/dL 05/07/2021 5:38 AM [facility] GFR Estimate >90 >60 mL/min/1.7 3m2 05/07/2021 5:38 AM [facility] Comment:As of December 19, 2020, eGFR is calculated by the CKD-EPI creatinine equation, without race adjustment. eGFR can be influenced by muscle mass, exercise, and diet. The reported eGFR is an estimation only and is only applicable if the renal function is stable. Blood STRUCTURE OF RIGHT UPPER LIMB / Unknown Venipuncture / Unknown 05/07/2021 4:49 AM MORTAR MIXER OPERATOR 05/07/2021 5:16 AM [facility] us Yoon Jackson LICENSING WORKER [place] LAB - BLOOD ORDERABL ES Final Result [facility] [address] [facility]. [address] [place] [address], [facility] [phone] * Hepatitis C antibody (10/25/2017 2:04 PM CDT) Hepatitis C Antibody Nonreactive NR^Nonre active 10/26/2017 12:22 PM CDT [facility] Comment: Assay performance characteristics have not been established for newborns, infants, and children Blood specimen (specimen) 10/25/2017 2:04 PM CDT 10/25/2017 2:05 PM CDT us Zaynab Bianchi MD LAB - BLOOD ORDERABLES Final Result [facility] [address] [place], [place] [address] from Last 3 Months or Most Recently Relevant to Health Maintenance Insurance MEDICA CHOICE Advance Directives For more information, please contact: [phone] * Full Code (Latest Code Status on File) Date Activated Date Inactivated Comments 05/03/2021 8:49 PM 05/07/2021 3:07 PM All basic and advanced life-sustaining interventions are performed as appropriate Question Answer Comments Code status determined by: Discussion with patie nt/ legal decision maker Care Teams Concrete Spreader Relationship Specialty Start Date End Date No Ref-Primary, Physician PCP - General 01/16/21
--- OUTSIDE RECORDS SUMMARY | 2025-03-31 19:32 | XMS_ITS | Encounter Summary ---
Author Organization [facility] Address [address] [place] [address] Care Team Providers Care Retail Grocer Name Role Phone No Ref-Primary, Physician Primary Care Provider Yoon Schulz APRN REHAB DIRECTOR OCCUPATIONAL THERAPIST Unavailable [phone] Evgeny Ham MD Unavailable Polina Black NP Unavailable [phone] Ilya Tolliver MD Unavailable [phone] Yoon Schulz APRN REHAB DIRECTOR OCCUPATIONAL THERAPIST Unavailable Polina Black NP Unavailable [facility] Unavailable [phone] Encounter Details Date Type Department Care Team (Late st Contact Info) Description 11/02/2021 [facility] Medical Advice [facility] [place] [address] [address] Moon Gillil[place], POND WORKER Social History Tobacco Use Types Packs/Day Years Used Date Smoking Tobacco: Former Smokeless Tobacco: Never Comments:quit in 2010 Alcohol Use Standard Drinks/Week Comments Yes 0 (1 standard drink = 0.6 oz pur e alcohol) occasional weekends PHQ-2 Answer Date Recorded PHQ-2 Score 0 07/20/2021 Comments No Sex and Gender Information Value Date Recorded Sex Assigned at Female 05/02/2021 3:16 PM SENIOR TECHNICAL SUPPORT ANALYST Legal Sex Female 5:00 AM SENIOR TECHNICAL SUPPORT ANALYST Gender Identity Female 05/02/2021 3:16 PM SENIOR TECHNICAL SUPPORT ANALYST Sexual Orientation Straight 05/02/2021 3: 16 PM SENIOR TECHNICAL SUPPORT ANALYST documented as of this encounter Plan of Treatment Not on file documented as of this encounter Visit Diagnoses Not on filedocumented in this encounter Care Teams Retail Grocer Relationship Specialty Start Date End Date No Ref-Primary, Physician PCP - General 01/16/21 Yoon Schulz APRN REHAB DIRECTOR OCCUPATIONAL THERAPIST [address] [place] [address] Assigned PCP 05/29/21 03/17/22 Evgeny Ham MD [address] [place] [address] Assigned Sleep Provider 07/31/21 Polina Black NAIL MAKING MACHINE TENDER [address] [place] [address] Assigned PCP 03/18/22 08/04/22 [place] [address] [place] [address] Assigned OBGYN Provider 05/20/22 Yoon Schulz APRN REHAB DIRECTOR OCCUPATIONAL THERAPIST [address] [place] [address] Assigned PCP 08/05/22 11/17/22 Polina Black NP [address] [place] [address] Assigned PCP 11/18/22 03/02/24 [facility] [address] [place] [address] Assigned PCP 03/03/24 07/02/24 documented as of this encounter
--- OUTSIDE RECORDS SUMMARY | 2025-03-31 19:32 | XMS_ITS | Encounter Summary ---
Author Organization [place] Address [address] [place] [address]. [place] [address] Care Team Providers Care [employer] Name Role Phone No Ref-Primary, Physician Primary Care Provider Evgeny Ham MD Unavailable Polina Black NP Unavailable Ilya Tolliver MD [facility] CHAIN OFFBEARER Unavailable [phone] Polina Black NP Unavailable [facility] Unavailable Encounter Details Date Type Department Care Team (Late st Contact Info) Description 05/14/2022 [facility] Medical Advice [address] [address] Evgeny Ham MD [address] [place] [address] Social History Tobacco Use Types Packs/Day Years Used Date Smoking Tobacco: Former Smokeless Tobacco: Never Comments:quit in 2010 Alcohol Use Standard Drinks/Week Comments Yes 0 (1 standard drink = 0.6 oz pur e alcohol) occasional weekends PHQ-2 Answer Date Recorded PHQ-2 Score 0 07/20/2021 Comments No Sex and Gender Information Value Date Recorded Sex Assigned at Female 05/02/2021 3:16 PM SITE ACQUISITION MANAGER Legal Sex Female 5:00 AM SITE ACQUISITION MANAGER Gender Identity Female 05/02/2021 3:16 PM SITE ACQUISITION MANAGER Sexual Orientation Straight 05/02/2021 3: 16 PM SITE ACQUISITION MANAGER COVID-19 Exposure Response Date Recorded In the last 10 days, have yo u been in contact with someone who was confirmed or suspected to have Coronavirus/COVID-19? No / Unsure 05/11/2022 1:39 AM SITE ACQUISITION MANAGER documented as of this encounter Plan of Treatment Not on file documented as of this encounter Visit Diagnoses Not on filedocumented in this encounter Care Teams [employer] Relationship Specialty Start Date End Date No Ref-Primary, Physician PCP - General 01/16/21 Evgeny Ham MD [address] [place] [address] Assigned Sleep Provider 07/31/21 Polina Black NP [address] [place] [address] Assigned PCP 03/18/22 08/04/22 [place] [address] [place] [address] Assigned OBGYN Provider 05/20/22 Yoon Schulz APRN CNP [address] [place] [address] Assigned PCP 08/05/22 11/17/22 Polina Black NP [address] [place] [address] Assigned PCP 11/18/22 03/02/[address] [place] [address] Assigned PCP 03/03/24 07/02/24 documented as of this encounter
--- OUTSIDE RECORDS SUMMARY | 2025-03-31 19:32 | XMS_ITS | Encounter Summary ---
Author Organization [facility] Address [address] [place] [address] Care Team Providers Care Guard Chief Name Role Phone No Ref-Primary, Physician Primary Care Provider Yoon Schulz APRN PURE CULTURE OPERATOR Unavailable Evgeny Ham MD Unavailable Polina Black NP Unavailable [phone] Ilya Tolliver MD Unavailable [phone] Yoon Schulz APRN PURE CULTURE OPERATOR Unavailable Polina Black NP Unavailable [phone] [facility] Unavailable [phone] Encounter Details Date Type Department Care Team (Late st Contact Info) Description 01/17/2021 [facility] Medical Advice [facility] [place] [address] [place] [address] [place] [phone] Patricia Ferreira Social History Tobacco Use Types Packs/Day Years Used Date Smoking Tobacco: Never Smokeless Tobacco: Never Alcohol Use Standard Drinks/Week Comments Yes 0 (1 standard drink = 0.6 oz pur e alcohol) PHQ-2 Answer Date Recorded PHQ-2 Score 0 06/19/2018 Comments No Sex and Gender Information Value Date Recorded Sex Assigned at Female 05/02/2021 3:16 PM TOOL AND EQUIPMENT RENTAL CLERK Legal Sex Female 5:00 AM TOOL AND EQUIPMENT RENTAL CLERK Gender Identity Female 05/02/2021 3:16 PM TOOL AND EQUIPMENT RENTAL CLERK Sexual Orientation Straight 05/02/2021 3: 16 PM TOOL AND EQUIPMENT RENTAL CLERK COVID-19 Exposure Response Date Recorded In the last month, have you been in contact with someone who was confirmed or suspected to have Coronavirus / COVID-19? No / Unsure 01/16/2021 4:56 PM CDT documented as of this encounter Plan of Treatment Not on file documented as of this encounter Visit Diagnoses Not on filedocumented in this encounter Additional Health Concerns Infection Onset Date Last Indicated Resolved Time Rule Out COVID-19 05/03/2021 05/03/2021 05/03/2021 4:45 PM TOOL AND EQUIPMENT RENTAL CLERK COVID-19 05/03/2021 05/03/2021 05/24/2021 11:4 1 PM TOOL AND EQUIPMENT RENTAL CLERK documented as of this encounter Care Teams Guard Chief Relationship Specialty Start Date End Date No Ref-Primary, Physician PCP - General 01/16/21 Yoon Schulz APRN PURE CULTURE OPERATOR [address] [place] [address] Assigned PCP 05/29/21 03/17/22 Evgeny Ham MD [address] [place] [address] Assigned Sleep Provider 07/31/21 Polina Black NP [address] [place] [address] Assigned PCP 03/18/22 08/04/22 [place] [address] [place] [address] Assigned OBGYN Provider 05/20/22 Yoon Schulz APRN PURE CULTURE OPERATOR [id number] [place], [place] [address] [address] Assigned PCP 08/05/22 11/17/22 Polina Black NP [address] [place] [address] Assigned PCP 11/18/22 03/02/24 [facility] [address] [place] [address] Assigned PCP 03/03/24 07/02/24 documented as of this encounter
--- OUTSIDE RECORDS SUMMARY | 2025-03-31 19:32 | XMS_ITS | Encounter Summary ---
Author Organization [place] Address [address] [place] [address] Care Team Providers Care Learning Manager Name Role Phone No Ref-Primary, Physician Primary Care Provider Evgeny Ham MD Unavailable Ilya Tolliver MD Unavailable Yoon Schulz FLOOR TECH MORTUARY OPERATIONS MANAGER Unavailable Polina Black ASSOCIATE DATA SCIENTIST Unavailable [phone] [facility] Unavailable [phone] Encounter Details Date Type Department Care Team (Late st Contact Info) Description 09/20/2022 [facility] assembly line [facility] [place] [address] [facility] , [address] [place] [address] [facility] Social History Tobacco Use Types Packs/Day Years Used Date Smoking Tobacco: Former Smokeless Tobacco: Never Comments:quit in 2010 Alcohol Use Standard Drinks/Week Comments Yes 0 (1 standard drink = 0.6 oz pur e alcohol) occasional weekends PHQ-2 Answer Date Recorded PHQ-2 Score 0 07/20/2021 Comments No Sex and Gender Information Value Date Recorded Sex Assigned at Female 05/02/2021 3:16 PM CELL STRIPPER Legal Sex Female 5:00 AM CELL STRIPPER Gender Identity Female 05/02/2021 3:16 PM CELL STRIPPER Sexual Orientation Straight 05/02/2021 3: 16 PM CELL STRIPPER documented as of this encounter Plan of Treatment Not on file documented as of this encounter Visit Diagnoses Not on filedocumented in this encounter Care Teams Learning Manager Relationship Specialty Start Date End Date No Ref-Primary, Physician PCP - General 01/16/21 Evgeny Ham MD [address] [place] [address] Assigned Sleep Provider 07/31/21 [place] [address] [place] [address] Assigned OBGYN Provider 05/20/22 Yoon Schulz APRN MORTUARY OPERATIONS MANAGER [address] [place] [address] Assigned PCP 08/05/22 11/17/22 Polina Black NP [address] [place] [address] Assigned PCP 11/18/22 03/02/24 [facility] [address] [place] [address] Assigned PCP 03/03/24 07/02/24 documented as of this encounter
--- OUTSIDE RECORDS SUMMARY | 2025-03-31 19:32 | XMS_ITS | Encounter Summary ---
Author Organization [place] Address [address] [place] [address] Care Team Providers Care Machine Rigger Name Role Phone No Ref-Primary, Physician Primary Care Provider Evgeny Ham MD Unavailable Ilya Tolliver MD Unavailable Yoon Schulz BASS SINGER MANAGEMENT AND BUDGET ANALYST Unavailable Polina Black TRANSPLANT COORDINATOR Unavailable [facility] Unavailable Encounter Details Date Type Department Care Team (Late st Contact Info) Description 09/20/2022 [facility] sizer machine [facility] [place] [address] [facility] , [address] [place] [address] [facility] Social History Tobacco Use Types Packs/Day Years Used Date Smoking Tobacco: Former Smokeless Tobacco: Never Comments:quit in 2010 Alcohol Use Standard Drinks/Week Comments Yes 0 (1 standard drink = 0.6 oz pur e alcohol) occasional weekends PHQ-2 Answer Date Recorded PHQ-2 Score 0 07/20/2021 Comments No Sex and Gender Information Value Date Recorded Sex Assigned at Female 05/02/2021 3:16 PM SPOT MACHINE OPERATOR Legal Sex Female 5:00 AM SPOT MACHINE OPERATOR Gender Identity Female 05/02/2021 3:16 PM SPOT MACHINE OPERATOR Sexual Orientation Straight 05/02/2021 3: 16 PM SPOT MACHINE OPERATOR documented as of this encounter Plan of Treatment Not on file documented as of this encounter Visit Diagnoses Not on filedocumented in this encounter Care Teams Machine Rigger Relationship Specialty Start Date End Date No Ref-Primary, Physician PCP - General 01/16/21 Evgeny Ham MD [address] [place] [address] Assigned Sleep Provider 07/31/21 [place] [address] [place] [address] Assigned OBGYN Provider 05/20/22 Yoon Schulz APRN MANAGEMENT AND BUDGET ANALYST [address] [place] [address] Assigned PCP 08/05/22 11/17/22 Polina Black NP [address] [place] [address] Assigned PCP 11/18/22 03/02/24 [facility] [address] [place] [address] Assigned PCP 03/03/24 07/02/24 documented as of this encounter
--- OUTSIDE RECORDS SUMMARY | 2025-03-31 19:32 | XMS_ITS | Encounter Summary ---
Author Organization [facility] Address [address] [place] [id number] Care Team Providers Care Rehabilitation Clerk Name Role Phone Jazz, Yoon Gregorio SHREDDING MACHINE TENDER [employer]IN[employer]ING STEEL [employer]ACER Primary Care Provider Jazz, Yoon Gregorio SHREDDING MACHINE TENDER [employer]ER Unavailable Jazz, Yoon Gregorio SHREDDING MACHINE TENDER [employer]ING STEEL [employer]ER Unavailable Barrie Bojorquez MD Unavailable [phone] No Ref-Primary, Physician Primary Care Provider Jazz, Yoon Gregorio SHREDDING MACHINE TENDER [employer]IN[employer]ING STEEL [employer]ER Unavailable Evgeny Ham MD Unavailable Polina Black NP Unavailable [phone] Ilya Tolliver MD Unavailable [phone] JazzYoon rubalcava APRN [employer] Unavailable Polina Black NP Unavailable [phone] [facility] Unavailable [phone] Encounter Details Date Type Department Care Team (Late st Contact Info) Description [facility]05/2017 [facility] [address] [place] [address] Joanne Mandujano RN Social History Tobacco Use Types Packs/Day Years Used Date Smoking Tobacco: Never Alcohol Use Standard Drinks/Week Comments Yes 0 (1 standard drink = 0.6 oz pur e alcohol) Comments No Sex and Gender Information Value Date Recorded Sex Assigned at Female 05/02/2021 3:16 PM HEAD CUSTODIAN Legal Sex Female 5:00 AM HEAD CUSTODIAN Gender Identity Female 05/02/2021 3:16 PM HEAD CUSTODIAN Sexual Orientation Straight 05/02/2021 3: 16 PM HEAD CUSTODIAN documented as of this encounter Plan of Treatment Not on file documented as of this encounter Visit Diagnoses Not on filedocumented in this encounter Additional Health Concerns Infection Onset Date Last Indicated Resolved Time Rule Out COVID-19 05/03/2021 05/03/2021 05/03/2021 4:45 PM HEAD CUSTODIAN COVID-19 05/03/2021 05/03/2021 05/24/2021 11:4 1 PM HEAD CUSTODIAN documented as of this encounter Care Teams Rehabilitation Clerk Relationship Specialty Start Date End Date Yoon Schulz APRN CNP PCP - General Nurse Practitioner 03/13/17 01/15/21 Yoon Schulz APRN [employer] [address] [place] [address] PCP - Assigned PCP 03/18/17 08/13/18 No Ref-Primary, Physician PCP - General 01/16/21 Yoon Schulz APRN [employer] [address] [place] [address] Assigned PCP 03/18/17 09/04/20 [place] [address] [address] PKChristiY SIMON ALANIZ [address] Assigned Musculoskeletal Provider 04/02/20 08/14/20 Yoon Schulz APRN [employer] [address] [place] [address] Assigned PCP 05/29/21 03/17/22 Evgeny Ham MD [address] [address] Assigned Sleep Provider 07/31/21 Polina Black NP [address] [place] [address] Assigned PCP 03/18/22 08/04/22 [place] [address] [place] [address] Assigned OBGYN Provider 05/20/22 Yoon Schulz APRN [employer] Assigned PCP 08/05/22 11/17/22 Polina Black NP [address] [place] [address] Assigned PCP 11/18/22 03/02/24 [facility] [address] [place] [address] Assigned PCP 03/03/24 07/02/24 documented as of this encounter
[2025-03-31 19:47] LABS: Hematocrit* 43.1 % (33.0-51.0); Hemoglobin* 14.4 gm/dL (12.0-16.0); Immature Granulocytes Abs Auto 0.00 K/uL (0.00-0.30); Immature Granulocytes Pct Auto 0.0 %; Lymphocytes Absolute Auto 2.45 K/uL (0.90-2.90); Mean Corpuscular HGB Conc 33 gm/dL (32-36); Mean Corpuscular Hemoglobin 30 pg (26-34); Mean Corpuscular Volume 91 fL (80-100); RDW Coefficient of Variation % 11.5 % (11.5-15.5); Red Blood Count* 4.76 m/uL (4.00-5.20); White Blood Count* 9.33 K/uL (4.50-11.00)
[2025-03-31 19:52] LABS: Slide Review Reflex No
[2025-03-31 19:57] VITALS: BP 138/100; PULSE 74; RESP 18; TEMP 37.1; O2SAT 99
[2025-03-31 20:13] LABS: Albumin* 4.3 g/dL (3.3-5.0); Chloride* 100 mmol/L (96-114)
[2025-03-31 20:14] LABS: Potassium* 3.9 mmol/L (3.6-5.1); Sodium* 137 mmol/L (135-149)
[2025-03-31 20:16] LABS: Blood Urea Nitrogen* 9 mg/dL (5-24); Creatinine* 0.8 mg/dL (0.5-1.5); Est. Creatinine Clearance* 103.11; Estimated Glomerular Filt Rate 97 ml/min
[2025-03-31 20:17] LABS: Alanine Aminotransferase* 37 U/L (4-35); Alkaline Phosphatase* 54 U/L (40-150); Anion Gap 10 mEq/L (7-15); Aspartate Amino Transferase* 33 U/L (12-35); Bilirubin Direct* 0.1 mg/dL (0.0-0.5); Bilirubin Total* 0.3 mg/dL (0.1-1.5); Calcium* 9.2 mg/dL (8.4-10.6); Carbon Dioxide* 27 mmol/L (20-32); Glucose* 98 mg/dL (60-115); Total Protein* 7.0 g/dL (6.0-8.3)
--- NOTE | 2025-03-31 20:49 | CRLHL7_ITS ---
For Patients: As a result of the Century Cures Act, medical imaging exams and procedure reports are released immediately into your electronic medical record. You may view this report before your referring provider. If you have questions, please contact your health care provider. Indication: Epigastric pain Technique: CT through the abdomen following 118 mL Isovue 370 IV contrast Comparison: None Findings: Lower chest: No acute abnormality appreciated. Hepatobiliary: No significant parenchymal abnormality is appreciated. Cholecystectomy. Spleen: Tiny nonspecific hypodensity along the posteromedial spleen, likely incidental and benign. Pancreas: No acute abnormality appreciated. Adrenal glands: No acute abnormality appreciated. Kidneys: No acute abnormality appreciated. Subcentimeter hypodensity in the left kidney, too small for definitive characterization by CT. Bowel: No obstruction. No focal perienteric or pericolonic stranding is appreciated. The appendix is visualized and appears unremarkable. Vascular: No acute abnormality appreciated. Lymph nodes: No gross lymphadenopathy. Peritoneum: No free air. No free fluid. Soft tissues: No acute abnormality appreciated. Bones: No acute fracture. No lytic or blastic lesion. Mild lumbosacral spondylosis and L5 pars defects. Impression: No acute abnormality appreciated. Please note that all CT scans at this facility use dose modulation, iterative reconstruction, and/or weight-based dosing when appropriate to reduce radiation dose to as low as reasonably achievable. Dictated by Tahir Wilson MD @ 03/31/2025 10:27:02 PM (Electronically Signed)
[2025-03-31 22:40] VITALS: BP 134/97; PULSE 79; RESP 18; TEMP 36.6; O2SAT 98
[2025-03-31] MEDS: OMEPRAZOLE 20 MG CAPSULE DR 40 MG PO (22:57)
== END 2025-03-31 23:06 | disposition home or self-care (01) ==
PROVIDERS: Emergency Provider Family Medicine
DX: R10.13 Epigastric pain (principal); Z90.49 Acquired absence of other specified parts of digestive tract
CPT/HCPCS: 36415; 74160; 80048; 80076; 83690; 84484; 85025; 86140; 99284; 99285; A9270; Q9967